=== PATIENT | male | born 1965 | race Caucasian/White ===

== ENCOUNTER 2017-07-26 05:18 | Emergency (ER) | payer OTHER, SELFPAY ==
[2017-07-26] MEDS ORDERED: Adacel (T-DAP) 0.5 ML VIAL ONE (05:44)
[2017-07-26] MEDS ORDERED: Fluorescein Opthalmic Strip ONE (05:44)
[2017-07-26] MEDS ORDERED: Lidocaine 1% w/Epinephrine 1:100K 30 ML VIAL ONE (05:49)
[2017-07-26] MEDS ORDERED: Bacitracin Zinc 1 Packet ONE (07:31)
[2017-07-26] MEDS ORDERED: AMOXicillin 250 MG CAP ONE (07:31)
[2017-07-26] MEDS ORDERED: HYDROcodone/Acetaminophen 10/325 mg Tablet ONE (07:38)
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
== END 2017-07-26 07:50 | disposition home or self-care (01) ==
LOC: BURERS 05:18
DX: S06.9X1A Unspecified intracranial injury with loss of consciousness of 30 minutes or less, initial encounter (principal); S02.32XA Fracture of orbital floor, left side, initial encounter for closed fracture; S00.83XA Contusion of other part of head, initial encounter; H53.2 Diplopia; I10 Essential (primary) hypertension; Z79.899 Other long term (current) drug therapy; Z23 Encounter for immunization; W22.8XXA Striking against or struck by other objects, initial encounter; Y92.69 Other specified industrial and construction area as the place of occurrence of the external cause; Y99.0 Civilian activity done for income or pay
CPT/HCPCS: 12011; 70450; 70486; 90471; 90715; J2001